=== PATIENT | female | born 1995 | race Caucasian/White ===

== ENCOUNTER → 2016-03-21 | Outpatient (CLI) | payer OTHER ==
--- NOTE | 2016-03-21 11:35 | REP ---
HIDA SCAN WITH GALLBLADDER EJECTION FRACTION: Following the intravenous administration of 6.2 mCi of technetium 99m mebrofenin, multiple images of the right upper quadrant are performed every 5 minutes for a period of 1 hour. There is biliary to bowel transit at 15 minutes post injection. The gallbladder is visualized at 35 minutes post injection with no scintigraphic evidence of cholecystitis. At the 1 hour ramesh, 8 ounces of Ensure Enlive was ingested and further imaging performed for 1 hour. Gallbladder activity is measured and the gallbladder ejection fraction is calculated to be 55% which is normal. IMPRESSION: No scintigraphic evidence of cholecystitis. Normal gallbladder ejection fraction. Signed by Martell Charles MD 03/21/2016 05:20 P
== END ==
LOC: M RAD 07:02
PROVIDERS: ATTEND Surgery
DX: R10.11 Right upper quadrant pain (principal)

== ENCOUNTER 2016-04-05 19:44 | Emergency (ER) | payer OTHER ==
[2016-04-05 21:00] LABS: BASO % 0.5 % (0.0-1.0); EOS # 0.1 K/mm3 (0.0-0.50); EOS % 1.9 % (0.0-3.0); LARGE UNSTAINED CELL # 0.1 K/mm3 (0.0-0.4); LARGE UNSTAINED CELL % 2.1 % (0.0-4.0); LYMPH # 2.4 K/mm3 (1.5-6.5); LYMPH % 35.9 % (24.0-44.0); MEAN CORPUSCULAR HEMOGLOBIN 29.7 pg (27.0-33.0); MEAN CORPUSCULAR HGB CONC 34.5 g/dl (32.0-36.5); MEAN CORPUSCULAR VOLUME 86.2 fl (80.0-96.0); MONO # 0.4 K/mm3 (0.0-0.8); MONO % 5.9 % (0.0-5.0); NEUTROPHILS # 3.6 K/mm3 (1.8-7.7); NEUTROPHILS % 53.7 % (36.0-66.0); PLATELET COUNT, AUTOMATED 185 k/mm3 (150-450); RED CELL DISTRIBUTION WIDTH 12.7 % (11.5-14.5); WHITE BLOOD COUNT 6.7 K/mm3 (4.0-10.0)
[2016-04-05] MEDS ORDERED: MORPHINE 4 MG/ML 1ML SYRINGE As Ordered ONE (21:06)
[2016-04-05] MEDS ORDERED: ONDANSETRON 4MG/2ML VIAL (J2405) As Ordered ONE (21:06)
[2016-04-05 21:09] LABS: INR 0.99
[2016-04-05 21:12] LABS: CONTROL LINE HCG INT CTR LINE PRESENT
[2016-04-05 21:21] LABS: ALBUMIN/GLOBULIN RATIO 1.33 (1.00-1.93); ALKALINE PHOSPHATASE 76 U/L (45-117); ALT/SGPT 16 U/L (12-78); AMYLASE 56 U/L (25-115); ANION GAP 8 MEQ/L (8-16); AST/SGOT 11 U/L (15-37); BILIRUBIN,DIRECT 0.1 MG/DL (0.0-0.2); BILIRUBIN,TOTAL 0.3 MG/DL (0.2-1.0); BLOOD UREA NITROGEN 19 MG/DL (7-18); CALCIUM LEVEL 9.2 MG/DL (8.5-10.1); CARBON DIOXIDE LEVEL 28 MEQ/L (21-32); CHLORIDE LEVEL 106 MEQ/L (98-107); CREATININE FOR GFR 0.77 MG/DL (0.55-1.02); GLUCOSE, FASTING 88 MG/DL (70-105); POTASSIUM SERUM 4.1 MEQ/L (3.5-5.1); SODIUM LEVEL 142 MEQ/L (136-145)
[2016-04-05] MEDS ORDERED: diphenhydrAMINE INJ 50MG/ML VIAL (J1200) As Ordered ONE (21:33)
[2016-04-05] MEDS ORDERED: ISOVUE-370 76% 100ML VIAL (Q9967) As Ordered ONE (22:52)
--- NOTE | 2016-04-05 23:30 | REPUSA ---
CT of the abdomen and pelvis with contrast Clinical statement: Pain. Technique: Multiple axial CT images were obtained from the base of the lungs through the floor of the pelvis utilizing 5 mm axial slices after administration of nonionic intravenous contrast. Coronal an d sagittal reconstructions were also obtained. Comparison: 01/17/2016. Findings: Chest: The visualized lung bases are clear. Abdomen: The liver, spleen, pancreas, kidneys, gallbladder, and adrenal glands are unremarkable. The aorta is within normal limits. There is no evidence of abdominal lymphadenopathy or ascites. Pelvis: The bowel is unremarkable, with no obstructive or inflammatory changes. The appendix is tamar l. The urinary bladder is within normal limits. The other pelvic structures appear grossly intact. Th ere is no evidence of pelvic lymphadenopathy or ascites. Bones: There are no suspicious osseous abnormalities seen. Impression: Unremarkable CT examination of the abdomen and pelvis.
[2016-04-05] MEDS ORDERED: HYDROmorphone HCL 1 MG/ML SYRINGE (J1170) As Ordered ONE (23:52)
[2016-04-06 02:07] LABS: MEAN CORPUSCULAR HEMOGLOBIN 29.6 pg (27.0-33.0); MEAN CORPUSCULAR HGB CONC 34.3 g/dl (32.0-36.5); MEAN CORPUSCULAR VOLUME 86.3 fl (80.0-96.0); RED CELL DISTRIBUTION WIDTH 12.8 % (11.5-14.5); WHITE BLOOD COUNT 7.9 K/mm3 (4.0-10.0)
--- NOTE | 2016-04-06 02:56 | EDDOCDS ---
Nurse's Notes [facility] Name: Mona Holloway Age: 20 yrs Sex: Female : 1995 Arrival Date: 04/05/2016 Time: 19:44 Bed 12 Private MD: Rafia COURTNEY Diagnosis: Abdominal and pelvic pain Presentation: 04/05 20:02 Presenting complaint: Patient states: PER PT YESTERDAY SHE HAD ENDOSCOPY WITH BIOPSY AT [address], THIS AFTERNOON SHE DEVELOPED NAUSEA & VOMITING & STATES THERE HAS BEEN A SIGNIFICANT AMOUNT OF BLOOD NOTED IN HER EMESIS, ALSO HAS HAD ALL OVER ABDOMINAL PAIN. Risk factors: the patient reports no vaginal bleeding. Adult Sepsis Screening: The patient does not have new or worsening altered mentation. Patient's respiratory rate is less than 22. Systolic blood pressure is greater than 100. Patient has a qSOFA score of 0- Negative Sepsis Screen. Suicide/Homicide risk assessment- the patient denies having any suicidal and/or homicidal ideations and does not present with any other emotional, behavioral or mental health complaints. 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 Transition of care: patient was not received from another setting of care. 20:02 Acuity: WILMER Level 3 5 20:02 Method Of Arrival: Walkin/Carried/Asstd 5 Triage Assessment: 20:05 General: Appears in no apparent distress, Behavior is appropriate for age, cooperative. tm5 Pain: Location: abdomen Pain currently is 8 out of 10 on a pain scale. Quality of pain is described as crampy, sharp. Pt Declines HIV testing. Neurological: Level of Consciousness is awake, alert, Oriented to person, place, time. Respiratory: Airway is patent Respiratory effort is even, unlabored, Respiratory pattern is regular, symmetrical. GI: Abdomen is non- distended Reports nausea, vomiting. Derm: Skin is pink, warm & dry. normal. 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 control implant left arm - PMHx: Gall Bladder Disease; - PSHx: WISDOM TEETH; - Social history: Smoking status: Patient states was never smoker of tobacco. No barriers to communication noted, The patient speaks fluent Occitan. - Family history: Not pertinent. - : The pt / caregiver states he / she is not on anticoagulants. Home medication list is obtained from the patient. - Exposure Risk Screening:: None identified. Screenin:20 Screening information is obtained from the patient. Fall risk: No risks identified. rs3 Assistance ADL's: requires no assistance with activities of daily living. Abuse/DV Screen: The patient / caregiver reports he/she is: not in a situation that causes fear, pain or injury. Nutritional screening: No deficits noted. Advance Directives: Currently, there is no health care proxy. There is no active DNR order. home support is adequate. Assessment: 20:21 General: Appears in no apparent distress, Behavior is appropriate for age, cooperative. rs3 Pain: Location: abdomen. Neurological: Level of Consciousness is awake, alert, Oriented to person, place, time. Cardiovascular: Capillary refill < 3 seconds. Respiratory: Airway is patent Respiratory effort is even, unlabored. GI: Abdomen is non- distended Bowel sounds present X 4 quads. Abd is soft and non tender X 4 quads. GI: Reports upper abd pain, nausea, vomiting. Derm: Skin is pink, warm & dry. 21:30 General: Appears in no apparent distress, Behavior is appropriate for age, cooperative, rs3 reports of itching after the morphine. attending provider made aware. ordered Benadryl given . 23:38 Reassessment: Patient states symptoms have not improved. pt complains of abdominal pain tm5 7/10 at this time, states that she was given Morphine earlier which made her itchy so she also was given Benadryl, pt states allergy to Morphine, states "I usually get a pain medication that starts with a D when I'm here", pt appears to be in no distress at this time is smiling & laughing with visitor. 04/06 00:41 Reassessment: Patient appears in no apparent distress at this time. Patient states tm5 feeling better. Patient states symptoms have improved. pt resting with eyes closed, resp easy, no s/s of any distress. 01:11 Reassessment: Patient appears in no apparent distress at this time. Patient states tm5 feeling better. Patient states symptoms have improved. pt complains of itchy to her face, no hives or rash noted at this time, pt refuses cool cloth to place on her face, pt's friend/visitor is asking if pt can be admitted to the hospital for observation due to vomiting blood at home, pt has not vomited since she has been here in the ER. 02:54 Reassessment: Patient appears in no apparent distress at this time. Patient states tm5 feeling better. Patient states symptoms have improved. Vital Signs: 04/05 19:45 BP 121 / 72; Pulse 86; Resp 18 S; Temp 99.0(O); Pulse Ox 99% on R/A; Weight 63.5 kg gr2 (R); Height 65 in. (165.10 cm) (R); Pain 9/10; 22:39 BP 114 / 72; Pulse 74; Resp 18; Temp 98; Pulse Ox 99% on R/A; Pain 7/10; rs3 23:36 BP 114 / 62 (auto/); tm5 23:37 Resp 18; Pulse Ox 97% on R/A; Pain 7/10; tm5 04/06 00:36 Resp 16 S; Pulse Ox 96% on R/A; tm5 00:36 BP 103 / 55 (auto/); tm5 01:06 BP 105 / 56 (auto/); tm5 01:06 Pulse 77; Resp 18; Pulse Ox 95% on R/A; Pain 2/10; tm5 01:36 BP 109 / 52 (auto/); tm5 01:36 Pulse 77; Resp 18 S; Pulse Ox 96% on R/A; tm5 02:54 BP 104 / 51; Pulse 74; Resp 18; Temp 98.3; Pulse Ox 98% on R/A; Pain 2/10; tm5 04/05 19:45 Body Mass Index 23.30 (63.50 kg, 165.10 cm) gr2 Vitals: 04/05 19:45 Log In Time: April 05, 2016 at 19:45. gr2 ED Course: 19:45 Patient visited by Heladio Mueller. gr2 19:45 [facility]. gr2 19:45 Patient moved to Waiting gr2 19:47 Patient visited by Heladio Mueller. gr2 19:47 Patient moved to Pre RCE gr2 20:04 Triage Initiated tm5 20:08 Elizabeth Chapman,RN is Primary Nurse. ck1 20:08 Patient moved to 12 ck1 20:20 Patient visited by Elizabeth Chapman RN. rs3 20:21 Yonatan Dixon DO is Attending Physician. mm11 20:21 Patient visited by Yonatan Dixon DO. mm11 20:41 Patient visited by Yonatan Dixon DO. mm11 20:45 Type & Screen Sent. rs3 20:45 Prothrombin Time Profile\\E\\INR Sent. rs3 20:45 Partial Thromboplastin Time Sent. rs3 20:45 Lipase Sent. rs3 20:45 HCG,Serum Qualitative Sent. rs3 20:45 CBC with Diff Sent. rs3 20:45 Amylase Sent. rs3 20:45 Basic Metabolic Profile Sent. rs3 20:46 Liver Profile Sent. rs3 20:51 Patient visited by Kiarra Davies, Telecom Sales Consultant. jlm 21:15 [facility] Payment Agreement was scanned into [employer] and attached to record. gjb 21:21 Patient visited by Elizabeth Chapman RN. rs3 22:31 Patient visited by Elizabeth Chapman RN. rs3 23:11 Patient visited by Jaycee Lucio RN. tm5 23:[address] back from [address]. tm5 23:15 The patient / caregiver is instructed regarding the plan of care and ED course. Report tm5 received from Raysa LANDERS, assumed care of pt at this time. 23:35 Patient visited by Jaycee Lucio RN. tm5 23:41 Notified attending ED physician of pt's complaints of continuing abdominal pain . tm5 23:42 Waiting for radiology results. tm5 04/06 00:02 Patient visited by Jaycee Lucio RN. tm5 00:06 CT ABD & PELVIS: IV Contrast Only Returned. EDMS 00:41 Patient visited by Jaycee Lucio RN. tm5 01:09 COMPLETE BLOOD COUNT Sent. tm5 01:09 Labs drawn. (by ED staff). Sent per order to lab. tm5 01:10 Inserted saline lock: 20 gauge in right antecubital area this RN is documenting noted tm5 saline lock to right AC that wasn't documented by the off going RN. 01:25 Patient visited by Jaycee Lucio RN. tm5 02:04 Patient visited by Jaycee Lucio RN. tm5 02:53 Patient visited by Jaycee Lucio RN. tm5 02:54 Discontinued lock intact, bleeding controlled, pressure dressing applied, No tm5 redness/swelling at site. No procedures done that require assistance. Administered Medications: 04/05 21:20 Drug: Ondansetron 4 mg [ondansetron HCl 2 mg/mL intravenous solution (2 mL)] Route: rs3 IVP; Site: right antecubital; 23:38 Follow up: Response: Nausea is resolved; No Adverse Reaction tm5 21:21 Drug: morphine 4 mg [morphine 4 mg/mL intravenous cartridge (1 mL)] Route: IVP; Site: rs3 right antecubital; 22:39 Follow up: BP 114 / 72; Pulse 74 bpm; Resp 18 bpm; Temp 98; Pulse Ox 99% RA; Pain 09/24 rs3 Adult 21:49 Drug: diphenhydrAMINE 25 mg [diphenhydramine 50 mg/mL injection solution (0.5 mL)] rs3 Route: IVP; Site: right antecubital; 23:37 Follow up: Response: No Adverse Reaction tm5 04/06 00:02 Drug: Dilaudid - HYDROmorphone 0.5 mg [hydromorphone 1 mg/mL injection syringe (0.5 tm5 mL)] Route: IVP; Site: right antecubital; 00:44 Follow up: Response: No Adverse Reaction; Pain is decreased tm5 Order Results: Lab Order: Amylase; SPEC'M 04/05/16 20:43 Test: AMYLASE; Value: 56; Range: 25-115; Units: U/L; Status: F Lab Order: Basic Metabolic Profile; SPEC'M 04/05/16 20:43 Test: GLUCOSE, FASTING; Value: 88; Range: 70-105; Units: MG/DL; Status: F Test: BLOOD UREA NITROGEN; Value: 19; Range: 7-18; Abnormal: Above high normal; Units: MG/DL; Status: F Test: CREATININE FOR GFR; Value: 0.77; Range: 0.55-1.02; Units: MG/DL; Status: F Test: SODIUM LEVEL; Value: 142; Range: 136-145; Units: MEQ/L; Status: F Test: POTASSIUM SERUM; Value: 4.1; Range: 3.5-5.1; Units: MEQ/L; Status: F Test: CHLORIDE LEVEL; Value: 106; Range: 98-107; Units: MEQ/L; Status: F Test: CARBON DIOXIDE LEVEL; Value: 28; Range: 21-32; Units: MEQ/L; Status: F Test: ANION GAP; Value: 8; Range: 8-16; Units: MEQ/L; Status: F Test: CALCIUM LEVEL; Value: 9.2; Range: 8.5-10.1; Units: MG/DL; Status: F Lab Order: CBC with Diff; SPEC'M 04/05/16 20:43 Test: WHITE BLOOD COUNT; Value: 6.7; Range: 4.0-10.0; Units: K/mm3; Status: F Test: RED BLOOD COUNT; Value: 4.67; Range: 4.00-5.40; Units: M/mm3; Status: F Test: HEMOGLOBIN; Value: 13.9; Range: 12.0-16.0; Units: g/dl; Status: F Test: HEMATOCRIT; Value: 40.3; Range: 36.0-47.0; Units: %; Status: F Test: MEAN CORPUSCULAR VOLUME; Value: 86.2; Range: 80.0-96.0; Units: fl; Status: F Test: MEAN CORPUSCULAR HEMOGLOBIN; Value: 29.7; Range: 27.0-33.0; Units: pg; Status: F Test: MEAN CORPUSCULAR HGB CONC; Value: 34.5; Range: 32.0-36.5; Units: g/dl; Status: F Test: RED CELL DISTRIBUTION WIDTH; Value: 12.7; Range: 11.5-14.5; Units: %; Status: F Test: PLATELET COUNT, AUTOMATED; Value: 185; Range: 150-450; Units: k/mm3; Status: F Test: NEUTROPHILS %; Value: 53.7; Range: 36.0-66.0; Units: %; Status: F Test: LYMPH %; Value: 35.9; Range: 24.0-44.0; Units: %; Status: F Test: MONO %; Value: 5.9; Range: 0.0-5.0; Abnormal: Above high normal; Units: %; Status: F Test: EOS %; Value: 1.9; Range: 0.0-3.0; Units: %; Status: F Test: BASO %; Value: 0.5; Range: 0.0-1.0; Units: %; Status: F Test: LARGE UNSTAINED CELL %; Value: 2.1; Range: 0.0-4.0; Units: %; Status: F Test: NEUTROPHILS #; Value: 3.6; Range: 1.8-7.7; Units: K/mm3; Status: F Test: LYMPH #; Value: 2.4; Range: 1.5-6.5; Units: K/mm3; Status: F Test: MONO #; Value: 0.4; Range: 0.0-0.8; Units: K/mm3; Status: F Test: EOS #; Value: 0.1; Range: 0.0-0.50; Units: K/mm3; Status: F Test: BASO #; Value: 0.0; Range: 0.0-0.2; Units: K/mm3; Status: F Test: LARGE UNSTAINED CELL #; Value: 0.1; Range: 0.0-0.4; Units: K/mm3; Status: F Lab Order: HCG,Serum Qualitative; SPEC' 04/05/16 20:43 Test: HCG, SERUM QUALITATIVE; Value: NEGATIVE; Range: NEGATIVE; Status: F Lab Order: Lipase; SPEC' 04/05/16 20:43 Test: LIPASE; Value: 130; Range: 73-393; Units: U/L; Status: F Lab Order: Liver Profile; SPEC' 04/05/16 20:43 Test: AST/SGOT; Value: 11; Range: 15-37; Abnormal: Below low normal; Units: U/L; Status: F Test: ALT/SGPT; Value: 16; Range: 12-78; Units: U/L; Status: F Test: ALKALINE PHOSPHATASE; Value: 76; Range: 45-117; Units: U/L; Status: F Test: BILIRUBIN,TOTAL; Value: 0.3; Range: 0.2-1.0; Units: MG/DL; Status: F Test: BILIRUBIN,DIRECT; Value: 0.1; Range: 0.0-0.2; Units: MG/DL; Status: F Test: TOTAL PROTEIN; Value: 7.0; Range: 6.4-8.2; Units: GM/DL; Status: F Test: ALBUMIN; Value: 4.0; Range: 3.2-5.2; Units: GM/DL; Status: F Test: ALBUMIN/GLOBULIN RATIO; Value: 1.33; Range: 1.00-1.93; Status: F Lab Order: Partial Thromboplastin Time; [facility] 20[facility]43 Test: PARTIAL THROMBOPLASTIN TIME; Value: 28.2; Range: 26.6-37.1; Units: SECONDS; Status: F Lab Order: Prothrombin Time Profile\\E\\INR; 04/05/16 20:43 Test: PROTHROMBIN TIME; Value: 13.2; Range: 12.3-14.5; Units: SECONDS; Status: F Test: INR; Value: 0.99; Status: F Test Note: ; THERAPUTIC HUMAN INR VALUES INDICATIONS NORMAL RANGES PROPHYLAXIS/TREATMENT OF: VENOUS THROMBOSIS 2.0-3.0 PULMONARY EMBOLISM 2.0-3.0 PREVENTION OF SYSTEMIC EMBOLISM FROM: TISSUE HEART VALVES 2.0-3.0 ACUTE MYOCARDIAL INFARCTION 2.0-3.0 VALVULAR HEART DISEASE 2.0-3.0 ATRIAL FIBRILLATION 2.0-3.0 MECHANICAL VALVES(HIGH RISK) 2.5-3.5 RECURRENT MYOCARDIAL INFARCTION 2.5-3.5 Lab Order: Type & Screen; 04/05/16 20:43 Test: BLOOD TYPE; Value: A POS; Status: F Test: AB SCREEN (INDIRECT DEBORA)GEL; Value: NEGATIVE; Status: F Lab Order: COMPLETE BLOOD COUNT; [facility]04/06/16 01:05 Test: WHITE BLOOD COUNT; Value: 7.9; Range: 4.0-10.0; Units: K/mm3; Status: F Test: RED BLOOD COUNT; Value: 4.47; Range: 4.00-5.40; Units: M/mm3; Status: F Test: HEMOGLOBIN; Value: 13.2; Range: 12.0-16.0; Units: g/dl; Status: F Test: HEMATOCRIT; Value: 38.6; Range: 36.0-47.0; Units: %; Status: F Test: MEAN CORPUSCULAR VOLUME; Value: 86.3; Range: 80.0-96.0; Units: fl; Status: F Test: MEAN CORPUSCULAR HEMOGLOBIN; Value: 29.6; Range: 27.0-33.0; Units: pg; Status: F Test: MEAN CORPUSCULAR HGB CONC; Value: 34.3; Range: 32.0-36.5; Units: g/dl; Status: F Test: RED CELL DISTRIBUTION WIDTH; Value: 12.8; Range: 11.5-14.5; Units: %; Status: F Test: PLATELET COUNT, AUTOMATED; Value: 178; Range: 150-450; Units: k/mm3; Status: F Radiology Order: CT ABD & PELVIS: IV Contrast Only Test: CT ABD & PELVIS: IV Contrast Only REASON FOR EXAMINATION: post endoscopy, pain; ; CT of the abdomen and pelvis with contrast; Clinical statement: Pain.; Technique: Multiple axial CT images were obtained from the base of the lungs through the floor of the; pelvis utilizing 5 mm axial slices after administration of nonionic intravenous contrast. Coronal an; d sagittal reconstructions were also obtained.; Comparison: 01/17/2016.; Findings:; Chest: The visualized lung bases are clear.; Abdomen: The liver, spleen, pancreas, kidneys, gallbladder, and adrenal glands are unremarkable. The; aorta is within normal limits. There is no evidence of abdominal lymphadenopathy or ascites.; Pelvis: The bowel is unremarkable, with no obstructive or inflammatory changes. The appendix is tamar; l. The urinary bladder is within normal limits. The other pelvic structures appear grossly intact. Th; ere is no evidence of pelvic lymphadenopathy or ascites.; Bones: There are no suspicious osseous abnormalities seen.; Impression: Unremarkable CT examination of the abdomen and pelvis.; ; Outcome: 02:33 Discharge ordered by Provider. mm11 02:54 Discharge Assessment: Patient awake, alert and oriented x 3. No cognitive and/or tm5 functional deficits noted. Patient verbalized understanding of disposition instructions. patient administered narcotics - yes. Pt provided with safe discharge. The following High Risk Discharge criteria are identified: None. Discharged to home ambulatory, with friend. Condition: good Condition: stable Condition: improved. Discharge instructions given to patient, Instructed on discharge instructions, follow up and referral plans. medication usage, Demonstrated understanding of instructions, medications, Pt was receptive of discharge instructions/ teaching. CT Study completed. Property :Personal belongings accompany Pt. 02:55 Patient left the ED. tm5 Signatures: Dispatcher [employer] EDChanda Dennis,RN RN ck1 Yonatan Dixon, DO mm11 Elizabeth Chapman RN RN rs3 Heladio Mueller gr2 Kiarra Davies, Telecom Sales Consultant Unit Valentina Morales Tonya, RN RN tm5 Corrections: (The following items were deleted from the chart) 04/05 21:33 20:05 Allergies: no known allergies; tm5 rs3 MTDD
--- NOTE | 2016-04-06 02:56 | EDDOCDS ---
Physician Documentation [facility] Name: Mona Holloway Age: 20 yrs Sex: Female : 1995 Arrival Date: 04/05/2016 Time: 19:44 Bed 12 [facility] Disposition: 04/06/16 02:33 Discharged to Home/Self Care. Impression: Abdominal and pelvic pain. - Condition is Stable. - Discharge Instructions: Abdominal Pain, Adult. - Medication Reconciliation, Local Pharmacy Hours form. - Follow up: Private Physician; When: 2 - 3 days; Reason: Continuance of care. - Problem is an acute exacerbation. - Symptoms have improved. - Notes: YOUR CT SCAN DID NOT SHOW ANY ABNORMALITIES AND YOUR BLOOD COUNTS DID NOT CHANGE. FOLLOW UP WITH YOUR SURGEON FOR FURTHER CARE. Historical: - Allergies: Morphine (Rash); - Home Meds: 1. control implant left arm - PMHx: Gall Bladder Disease; - PSHx: WISDOM TEETH; - Social history: Smoking status: Patient states was never smoker of tobacco. No barriers to communication noted, The patient speaks fluent Georgian. - Family history: Not pertinent. - : The pt / caregiver states he / she is not on anticoagulants. Home medication list is obtained from the patient. - Exposure Risk Screening:: None identified. DIRECTOR PATIENT FINANCIAL SERVICES: 04/05 20:05 LMP 03/22/2016 tm5 Vital Signs: 19:45 BP 121 / 72; Pulse 86; Resp 18 S; Temp 99.0(O); Pulse Ox 99% on R/A; Weight 63.5 kg / gr2 139.99 lbs (R); Height 65 in. (165.10 cm) (R); Pain 9/10; 22:39 BP 114 / 72; Pulse 74; Resp 18; Temp 98; Pulse Ox 99% on R/A; Pain 7/10; rs3 23:36 BP 114 / 62 (auto/); tm5 23:37 Resp 18; Pulse Ox 97% on R/A; Pain 7/10; tm5 04/06 00:36 Resp 16 S; Pulse Ox 96% on R/A; tm5 00:36 BP 103 / 55 (auto/); tm5 01:06 BP 105 / 56 (auto/); tm5 01:06 Pulse 77; Resp 18; Pulse Ox 95% on R/A; Pain 2/10; tm5 01:36 BP 109 / 52 (auto/); tm5 01:36 Pulse 77; Resp 18 S; Pulse Ox 96% on R/A; tm5 02:54 BP 104 / 51; Pulse 74; Resp 18; Temp 98.3; Pulse Ox 98% on R/A; Pain 2/10; tm5 04/05 19:45 Body Mass Index 23.30 (63.50 kg, 165.10 cm) gr2 MDM: 04/05 20:41 Ondansetron 4 mg IVP once ordered. mm11 20:42 morphine 4 mg IVP every 30 minutes; Document pain score/vitals after each dose (Hold if mm11 SBP < 90mmHg) x2 ordered. 20:42 IV Saline Lock ordered. mm11 20:42 Undress patient appropriately for examination ordered. mm11 20:43 Type & Screen Ordered. EDMS 20:43 NOTHING BY MOUTH+DIET ordered. EDMS 20:43 Amylase Ordered. EDMS 20:43 Basic Metabolic Profile Ordered. EDMS 20:43 CBC with Diff Ordered. EDMS 20:43 HCG,Serum Qualitative Ordered. EDMS 20:43 Lipase Ordered. EDMS 20:43 Liver Profile Ordered. EDMS 20:43 Partial Thromboplastin Time Ordered. EDMS 20:43 Prothrombin Time Profile\E\INR Ordered. EDMS 20:54 [facility] Order ordered. mm11 21:03 [facility] Faculty Physician Order complete. tmm1 21:09 Financial registration complete. zo 21:15 [facility] Payment Agreement was scanned into [employer] and attached to record. gjb 21:16 CBC with Diff Reviewed. mm11 21:16 HCG,Serum Qualitative Reviewed. mm11 21:16 Partial Thromboplastin Time Reviewed. mm11 21:16 Prothrombin Time Profile\E\INR Reviewed. mm11 21:16 Type & Screen Reviewed. mm11 21:30 diphenhydrAMINE 25 mg IVP once ordered. mm11 21:54 Basic Metabolic Profile Reviewed. mm11 21:54 Liver Profile Reviewed. mm11 21:54 Amylase Reviewed. mm11 21:54 HCG,Serum Qualitative Reviewed. mm11 21:54 Lipase Reviewed. mm11 21:54 Type & Screen Reviewed. mm11 21:55 CT ABD & PELVIS: IV Contrast Only Ordered. EDMS 23:51 Dilaudid - HYDROmorphone 0.5 mg IVP once ordered. mm11 04/06 00:05 Redraw CBC in 4 hours (put time in details section) ordered. mm11 00:10 Redraw CBC in 4 hours (put time in details section) complete. tmm1 00:12 COMPLETE BLOOD COUNT Ordered. EDMS 02:11 COMPLETE BLOOD COUNT Reviewed. mm11 02:11 CT ABD & PELVIS: IV Contrast Only Reviewed. mm11 Administered Medications: 04/05 21:20 Drug: Ondansetron 4 mg [ondansetron HCl 2 mg/mL intravenous solution (2 mL)] Route: rs3 IVP; Site: right antecubital; 23:38 Follow up: Response: Nausea is resolved; No Adverse Reaction tm5 21:21 Drug: morphine 4 mg [morphine 4 mg/mL intravenous cartridge (1 mL)] Route: IVP; Site: rs3 right antecubital; 22:39 Follow up: BP 114 / 72; Pulse 74 bpm; Resp 18 bpm; Temp 98; Pulse Ox 99% RA; Pain 09/24 rs3 Adult 21:49 Drug: diphenhydrAMINE 25 mg [diphenhydramine 50 mg/mL injection solution (0.5 mL)] rs3 Route: IVP; Site: right antecubital; 23:37 Follow up: Response: No Adverse Reaction tm5 04/06 00:02 Drug: Dilaudid - HYDROmorphone 0.5 mg [hydromorphone 1 mg/mL injection syringe (0.5 tm5 mL)] Route: IVP; Site: right antecubital; 00:44 Follow up: Response: No Adverse Reaction; Pain is decreased tm5 Signatures: Dispatcher [employer] EDMS Jesu Sams Matthew, DO DO mm11 Elizabeth Chapman RN RN rs3 Kati Magdaleno, CLAMMER CLAMMER tmm1 Valentina Srivastava Tonya, RN RN tm5 The chart was reviewed and I authenticate all verbal orders and agree with the evaluation and treatment provided.Corrections: (The following items were deleted from the chart) 04/05 21:33 20:05 Allergies: no known allergies; tm5 rs3 Attachments: 21:15 [facility] Payment Agreement emely MTDD
--- NOTE | 2016-04-08 03:56 | EDDOCDS ---
Physician Documentation [facility] Name: Mona Holloway Age: 20 yrs Sex: Female : 1995 Arrival Date: 04/05/2016 Time: 19:44 Bed 12 Private [facility] Disposition: 04/06/16 02:33 Discharged to Home/Self Care. Impression: Abdominal and pelvic pain. - Condition is Stable. - Discharge Instructions: Abdominal Pain, Adult. - Medication Reconciliation, Local Pharmacy Hours form. - Follow up: Private Physician; When: 2 - 3 days; Reason: Continuance of care. - Problem is an acute exacerbation. - Symptoms have improved. - Notes: YOUR CT SCAN DID NOT SHOW ANY ABNORMALITIES AND YOUR BLOOD COUNTS DID NOT CHANGE. FOLLOW UP WITH YOUR SURGEON FOR FURTHER CARE. Historical: - Allergies: Morphine (Rash); - Home Meds: 1. control implant left arm - PMHx: Gall Bladder Disease; - PSHx: WISDOM TEETH; - Social history: Smoking status: Patient states was never smoker of tobacco. No barriers to communication noted, The patient speaks fluent Amharic. - Family history: Not pertinent. - : The pt / caregiver states he / she is not on anticoagulants. Home medication list is obtained from the patient. - Exposure Risk Screening:: None identified. 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 (165.10 cm) (R); Pain 9/10; 22:39 BP 114 / 72; Pulse 74; Resp 18; Temp 98; Pulse Ox 99% on R/A; Pain 7/10; rs3 23:36 BP 114 / 62 (auto/); tm5 23:37 Resp 18; Pulse Ox 97% on R/A; Pain 7/10; tm5 04/06 00:36 Resp 16 S; Pulse Ox 96% on R/A; tm5 00:36 BP 103 / 55 (auto/); tm5 01:06 BP 105 / 56 (auto/); tm5 01:06 Pulse 77; Resp 18; Pulse Ox 95% on R/A; Pain 2/10; tm5 01:36 BP 109 / 52 (auto/); tm5 01:36 Pulse 77; Resp 18 S; Pulse Ox 96% on R/A; tm5 02:54 BP 104 / 51; Pulse 74; Resp 18; Temp 98.3; Pulse Ox 98% on R/A; Pain 2/10; tm5 04/05 19:45 Body Mass Index 23.30 (63.50 kg, 165.10 cm) gr2 MDM: 04/05 20:41 Ondansetron 4 mg IVP once ordered. mm11 20:42 morphine 4 mg IVP every 30 minutes; Document pain score/vitals after each dose (Hold if mm11 SBP < 90mmHg) x2 ordered. 20:42 IV Saline Lock ordered. mm11 20:42 Undress patient appropriately for examination ordered. mm11 20:43 Type & Screen Ordered. EDMS 20:43 NOTHING BY MOUTH+DIET ordered. EDMS 20:43 Amylase Ordered. EDMS 20:43 Basic Metabolic Profile Ordered. EDMS 20:43 CBC with Diff Ordered. EDMS 20:43 HCG,Serum Qualitative Ordered. EDMS 20:43 Lipase Ordered. EDMS 20:43 Liver Profile Ordered. EDMS 20:43 Partial Thromboplastin Time Ordered. EDMS 20:43 Prothrombin Time Profile\E\INR Ordered. EDMS 20:54 [facility] ordered. mm11 21:03 [facility] [place] complete. tmm1 21:09 Financial registration complete. zo 21:15 [facility] was [place] into Pinkding[employer] and attached to record. gjb 21:16 CBC with Diff Reviewed. mm11 21:16 HCG,Serum Qualitative Reviewed. mm11 21:16 Partial Thromboplastin Time Reviewed. mm11 21:16 Prothrombin Time Profile\E\INR Reviewed. mm11 21:16 Type & Screen Reviewed. mm11 21:30 diphenhydrAMINE 25 mg IVP once ordered. mm11 21:54 Basic Metabolic Profile Reviewed. mm11 21:54 Liver Profile Reviewed. mm11 21:54 Amylase Reviewed. mm11 21:54 HCG,Serum Qualitative Reviewed. mm11 21:54 Lipase Reviewed. mm11 21:54 Type & Screen Reviewed. mm11 21:55 CT ABD & PELVIS: IV Contrast Only Ordered. EDMS 23:51 Dilaudid - HYDROmorphone 0.5 mg IVP once ordered. mm11 04/06 00:05 Redraw CBC in 4 hours (put time in details section) ordered. mm11 00:10 Redraw CBC in 4 hours (put time in details section) complete. tmm1 00:12 COMPLETE BLOOD COUNT Ordered. EDMS 02:11 COMPLETE BLOOD COUNT Reviewed. mm11 02:11 CT ABD & PELVIS: IV Contrast Only Reviewed. mm11 11:07 T-Sheet-- Draft Copy was scanned into Pinkdingo and attached to record. gb Administered Medications: 04/05 21:20 Drug: Ondansetron 4 mg [ondansetron HCl 2 mg/mL intravenous solution (2 mL)] Route: rs3 IVP; Site: right antecubital; 23:38 Follow up: Response: Nausea is resolved; No Adverse Reaction tm5 21:21 Drug: morphine 4 mg [morphine 4 mg/mL intravenous cartridge (1 mL)] Route: IVP; Site: rs3 right antecubital; 22:39 Follow up: BP 114 / 72; Pulse 74 bpm; Resp 18 bpm; Temp 98; Pulse Ox 99% RA; Pain 10 rs3 Adult 21:49 Drug: diphenhydrAMINE 25 mg [diphenhydramine 50 mg/mL injection solution (0.5 mL)] rs3 Route: IVP; Site: right antecubital; 23:37 Follow up: Response: No Adverse Reaction tm5 04/06 00:02 Drug: Dilaudid - HYDROmorphone 0.5 mg [hydromorphone 1 mg/mL injection syringe (0.5 tm5 mL)] Route: IVP; Site: right antecubital; 00:44 Follow up: Response: No Adverse Reaction; Pain is decreased tm5 Signatures: Dispatcher MedHost EDMS Khloe Bueno, Jesu Ragsdale Matthew, DO DO mm11 Elizabeth Chapman RN RN rs3 McLear, Kati, THERAPEUTIC SUPPORT STAFF THERAPEUTIC SUPPORT STAFF tmm1 Valentina Srivastava Tonya, RN RN tm5 The chart was reviewed and I authenticate all verbal orders and agree with the evaluation and treatment provided.Corrections: (The following items were deleted from the chart) 04/05 21:33 20:05 Allergies: no known allergies; tm5 rs3 Attachments: 21:15 [facility] Payment Agreement gjb 04/06 11:07 T-Sheet-- Draft Copy gb Chart Complete MTDD
--- NOTE | 2016-04-08 03:56 | EDDOCDS ---
Nurse's Notes [facility] Name: Mona Holloway Age: 20 yrs Sex: Female : 1995 Arrival Date: 04/05/2016 Time: 19:44 Bed 12 Private MD: Rafia COURTNEY Diagnosis: Abdominal and pelvic pain Presentation: 04/05 20:02 Presenting complaint: Patient states: PER PT YESTERDAY SHE HAD ENDOSCOPY WITH BIOPSY AT [address], THIS AFTERNOON SHE DEVELOPED NAUSEA & VOMITING & STATES THERE HAS BEEN A SIGNIFICANT AMOUNT OF BLOOD NOTED IN HER EMESIS, ALSO HAS HAD ALL OVER ABDOMINAL PAIN. Risk factors: the patient reports no vaginal bleeding. Adult Sepsis Screening: The patient does not have new or worsening altered mentation. Patient's respiratory rate is less than 22. Systolic blood pressure is greater than 100. Patient has a qSOFA score of 0- Negative Sepsis Screen. Suicide/Homicide risk assessment- the patient denies having any suicidal and/or homicidal ideations and does not present with any other emotional, behavioral or mental health complaints. 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 Transition of care: patient was not received from another setting of care. 20:02 Acuity: WILMER Level 3 5 20:02 Method Of Arrival: Walkin/Carried/Asstd 5 Triage Assessment: 20:05 General: Appears in no apparent distress, Behavior is appropriate for age, cooperative. tm5 Pain: Location: abdomen Pain currently is 8 out of 10 on a pain scale. Quality of pain is described as crampy, sharp. Pt Declines HIV testing. Neurological: Level of Consciousness is awake, alert, Oriented to person, place, time. Respiratory: Airway is patent Respiratory effort is even, unlabored, Respiratory pattern is regular, symmetrical. GI: Abdomen is non- distended Reports nausea, vomiting. Derm: Skin is pink, warm & dry. normal. INTERMEDIATE MANAGER: 20:05 LMP 03/22/2016 5 Historical: - Allergies: Morphine (Rash); - Home Meds: 1. control implant left arm - PMHx: Gall Bladder Disease; - PSHx: WISDOM TEETH; - Social history: Smoking status: Patient states was never smoker of tobacco. No barriers to communication noted, The patient speaks fluent Vietnamese. - Family history: Not pertinent. - : The pt / caregiver states he / she is not on anticoagulants. Home medication list is obtained from the patient. - Exposure Risk Screening:: None identified. Screenin:20 Screening information is obtained from the patient. Fall risk: No risks identified. rs3 Assistance ADL's: requires no assistance with activities of daily living. Abuse/DV Screen: The patient / caregiver reports he/she is: not in a situation that causes fear, pain or injury. Nutritional screening: No deficits noted. Advance Directives: Currently, there is no health care proxy. There is no active DNR order. home support is adequate. Assessment: 20:21 General: Appears in no apparent distress, Behavior is appropriate for age, cooperative. rs3 Pain: Location: abdomen. Neurological: Level of Consciousness is awake, alert, Oriented to person, place, time. Cardiovascular: Capillary refill < 3 seconds. Respiratory: Airway is patent Respiratory effort is even, unlabored. GI: Abdomen is non- distended Bowel sounds present X 4 quads. Abd is soft and non tender X 4 quads. GI: Reports upper abd pain, nausea, vomiting. Derm: Skin is pink, warm & dry. 21:30 General: Appears in no apparent distress, Behavior is appropriate for age, cooperative, rs3 reports of itching after the morphine. attending provider made aware. ordered Benadryl given . 23:38 Reassessment: Patient states symptoms have not improved. pt complains of abdominal pain tm5 7/10 at this time, states that she was given Morphine earlier which made her itchy so she also was given Benadryl, pt states allergy to Morphine, states "I usually get a pain medication that starts with a D when I'm here", pt appears to be in no distress at this time is smiling & laughing with visitor. 04/06 00:41 Reassessment: Patient appears in no apparent distress at this time. Patient states tm5 feeling better. Patient states symptoms have improved. pt resting with eyes closed, resp easy, no s/s of any distress. 01:11 Reassessment: Patient appears in no apparent distress at this time. Patient states tm5 feeling better. Patient states symptoms have improved. pt complains of itchy to her face, no hives or rash noted at this time, pt refuses cool cloth to place on her face, pt's friend/visitor is asking if pt can be admitted to the hospital for observation due to vomiting blood at home, pt has not vomited since she has been here in the ER. 02:54 Reassessment: Patient appears in no apparent distress at this time. Patient states tm5 feeling better. Patient states symptoms have improved. Vital Signs: 04/05 19:45 BP 121 / 72; Pulse 86; Resp 18 S; Temp 99.0(O); Pulse Ox 99% on R/A; Weight 63.5 kg gr2 (R); Height 65 in. (165.10 cm) (R); Pain 9/10; 22:39 BP 114 / 72; Pulse 74; Resp 18; Temp 98; Pulse Ox 99% on R/A; Pain 7/10; rs3 23:36 BP 114 / 62 (auto/); tm5 23:37 Resp 18; Pulse Ox 97% on R/A; Pain 7/10; tm5 04/06 00:36 Resp 16 S; Pulse Ox 96% on R/A; tm5 00:36 BP 103 / 55 (auto/); tm5 01:06 BP 105 / 56 (auto/); tm5 01:06 Pulse 77; Resp 18; Pulse Ox 95% on R/A; Pain 2/10; tm5 01:36 BP 109 / 52 (auto/); tm5 01:36 Pulse 77; Resp 18 S; Pulse Ox 96% on R/A; tm5 02:54 BP 104 / 51; Pulse 74; Resp 18; Temp 98.3; Pulse Ox 98% on R/A; Pain 2/10; tm5 04/05 19:45 Body Mass Index 23.30 (63.50 kg, 165.10 cm) gr2 Vitals: 04/05 19:45 Log In Time: April 05, 2016 at 19:45. gr2 ED Course: 19:45 Patient visited by Heladio Mueller. gr2 19:45 [facility]. gr2 19:45 Patient moved to Waiting gr2 19:47 Patient visited by Heladio Mueller. gr2 19:47 Patient moved to Pre RCE gr2 20:04 Triage Initiated tm5 20:08 Elizabeth Chapman,RN is Primary Nurse. ck1 20:08 Patient moved to 12 ck1 20:20 Patient visited by Elizabeth Chapman RN. rs3 20:21 Yonatan Dixon DO is Attending Physician. mm11 20:21 Patient visited by Yonatan Dixon DO. mm11 20:41 Patient visited by Yonatan Dixon DO. mm11 20:45 Type & Screen Sent. rs3 20:45 Prothrombin Time Profile\\E\\INR Sent. rs3 20:45 Partial Thromboplastin Time Sent. rs3 20:45 Lipase Sent. rs3 20:45 HCG,Serum Qualitative Sent. rs3 20:45 CBC with Diff Sent. rs3 20:45 Amylase Sent. rs3 20:45 Basic Metabolic Profile Sent. rs3 20:46 Liver Profile Sent. rs3 20:51 Patient visited by Kiarra Davies, Director Of Teaching And Learning. jlm 21:15 [facility] Payment Agreement was scanned into [employer] and attached to record. gjb 21:21 Patient visited by Elizabeth Chapman RN. rs3 22:31 Patient visited by Elizabeth Chapman RN. rs3 23:11 Patient visited by Jaycee Lucio RN. tm5 23:[address] back from [address]. tm5 23:15 The patient / caregiver is instructed regarding the plan of care and ED course. Report tm5 received from Raysa LANDERS, assumed care of pt at this time. 23:35 Patient visited by Jaycee Lucio RN. tm5 23:41 Notified attending ED physician of pt's complaints of continuing abdominal pain . tm5 23:42 Waiting for radiology results. tm5 04/06 00:02 Patient visited by Jaycee Lucio RN. tm5 00:06 CT ABD & PELVIS: IV Contrast Only Returned. EDMS 00:41 Patient visited by Jaycee Lucio RN. tm5 01:09 COMPLETE BLOOD COUNT Sent. tm5 01:09 Labs drawn. (by ED staff). Sent per order to lab. tm5 01:10 Inserted saline lock: 20 gauge in right antecubital area this RN is documenting noted tm5 saline lock to right AC that wasn't documented by the off going RN. 01:25 Patient visited by Jaycee Lucio RN. tm5 02:04 Patient visited by Jaycee Lucio RN. tm5 02:53 Patient visited by Jaycee Lucio RN. tm5 02:54 Discontinued lock intact, bleeding controlled, pressure dressing applied, No tm5 redness/swelling at site. No procedures done that require assistance. 11:07 T-Sheet-- Draft Copy was scanned into [employer]orse and attached to record. gb Administered Medications: 04/05 21:20 Drug: Ondansetron 4 mg [ondansetron HCl 2 mg/mL intravenous solution (2 mL)] Route: rs3 IVP; Site: right antecubital; 23:38 Follow up: Response: Nausea is resolved; No Adverse Reaction tm5 21:21 Drug: morphine 4 mg [morphine 4 mg/mL intravenous cartridge (1 mL)] Route: IVP; Site: rs3 right antecubital; 22:39 Follow up: BP 114 / 72; Pulse 74 bpm; Resp 18 bpm; Temp 98; Pulse Ox 99% RA; Pain 7/10 rs3 Adult 21:49 Drug: diphenhydrAMINE 25 mg [diphenhydramine 50 mg/mL injection solution (0.5 mL)] rs3 Route: IVP; Site: right antecubital; 23:37 Follow up: Response: No Adverse Reaction tm5 04/06 00:02 Drug: Dilaudid - HYDROmorphone 0.5 mg [hydromorphone 1 mg/mL injection syringe (0.5 tm5 mL)] Route: IVP; Site: right antecubital; 00:44 Follow up: Response: No Adverse Reaction; Pain is decreased tm5 Order Results: Lab Order: Amylase; SPEC'M 04/05/16 20:43 Test: AMYLASE; Value: 56; Range: 25-115; Units: U/L; Status: F Lab Order: Basic Metabolic Profile; SPEC'M 04/05/16 20:43 Test: GLUCOSE, FASTING; Value: 88; Range: 70-105; Units: MG/DL; Status: F Test: BLOOD UREA NITROGEN; Value: 19; Range: 7-18; Abnormal: Above high normal; Units: MG/DL; Status: F Test: CREATININE FOR GFR; Value: 0.77; Range: 0.55-1.02; Units: MG/DL; Status: F Test: SODIUM LEVEL; Value: 142; Range: 136-145; Units: MEQ/L; Status: F Test: POTASSIUM SERUM; Value: 4.1; Range: 3.5-5.1; Units: MEQ/L; Status: F Test: CHLORIDE LEVEL; Value: 106; Range: 98-107; Units: MEQ/L; Status: F Test: CARBON DIOXIDE LEVEL; Value: 28; Range: 21-32; Units: MEQ/L; Status: F Test: ANION GAP; Value: 8; Range: 8-16; Units: MEQ/L; Status: F Test: CALCIUM LEVEL; Value: 9.2; Range: 8.5-10.1; Units: MG/DL; Status: F Lab Order: CBC with Diff; SPEC'M 04/05/16 20:43 Test: WHITE BLOOD COUNT; Value: 6.7; Range: 4.0-10.0; Units: K/mm3; Status: F Test: RED BLOOD COUNT; Value: 4.67; Range: 4.00-5.40; Units: M/mm3; Status: F Test: HEMOGLOBIN; Value: 13.9; Range: 12.0-16.0; Units: g/dl; Status: F Test: HEMATOCRIT; Value: 40.3; Range: 36.0-47.0; Units: %; Status: F Test: MEAN CORPUSCULAR VOLUME; Value: 86.2; Range: 80.0-96.0; Units: fl; Status: F Test: MEAN CORPUSCULAR HEMOGLOBIN; Value: 29.7; Range: 27.0-33.0; Units: pg; Status: F Test: MEAN CORPUSCULAR HGB CONC; Value: 34.5; Range: 32.0-36.5; Units: g/dl; Status: F Test: RED CELL DISTRIBUTION WIDTH; Value: 12.7; Range: 11.5-14.5; Units: %; Status: F Test: PLATELET COUNT, AUTOMATED; Value: 185; Range: 150-450; Units: k/mm3; Status: F Test: NEUTROPHILS %; Value: 53.7; Range: 36.0-66.0; Units: %; Status: F Test: LYMPH %; Value: 35.9; Range: 24.0-44.0; Units: %; Status: F Test: MONO %; Value: 5.9; Range: 0.0-5.0; Abnormal: Above high normal; Units: %; Status: F Test: EOS %; Value: 1.9; Range: 0.0-3.0; Units: %; Status: F Test: BASO %; Value: 0.5; Range: 0.0-1.0; Units: %; Status: F Test: LARGE UNSTAINED CELL %; Value: 2.1; Range: 0.0-4.0; Units: %; Status: F Test: NEUTROPHILS #; Value: 3.6; Range: 1.8-7.7; Units: K/mm3; Status: F Test: LYMPH #; Value: 2.4; Range: 1.5-6.5; Units: K/mm3; Status: F Test: MONO #; Value: 0.4; Range: 0.0-0.8; Units: K/mm3; Status: F Test: EOS #; Value: 0.1; Range: 0.0-0.50; Units: K/mm3; Status: F Test: BASO #; Value: 0.0; Range: 0.0-0.2; Units: K/mm3; Status: F Test: LARGE UNSTAINED CELL #; Value: 0.1; Range: 0.0-0.4; Units: K/mm3; Status: F Lab Order: HCG,Serum Qualitative; [facility] 04/05/16 20:43 Test: HCG, SERUM QUALITATIVE; Value: NEGATIVE; Range: NEGATIVE; Status: F Lab Order: Lipase; [facility] 04/05/16 20:43 Test: LIPASE; Value: 130; Range: 73-393; Units: U/L; Status: F Lab Order: Liver Profile; [facility] 04/05/16 20:43 Test: AST/SGOT; Value: 11; Range: 15-37; Abnormal: Below low normal; Units: U/L; Status: F Test: ALT/SGPT; Value: 16; Range: 12-78; Units: U/L; Status: F Test: ALKALINE PHOSPHATASE; Value: 76; Range: 45-117; Units: U/L; Status: F Test: BILIRUBIN,TOTAL; Value: 0.3; Range: 0.2-1.0; Units: MG/DL; Status: F Test: BILIRUBIN,DIRECT; Value: 0.1; Range: 0.0-0.2; Units: MG/DL; Status: F Test: TOTAL PROTEIN; Value: 7.0; Range: 6.4-8.2; Units: GM/DL; Status: F Test: ALBUMIN; Value: 4.0; Range: 3.2-5.2; Units: GM/DL; Status: F Test: ALBUMIN/GLOBULIN RATIO; Value: 1.33; Range: 1.00-1.93; Status: F Lab Order: Partial Thromboplastin Time; [facility] 20:43 Test: PARTIAL THROMBOPLASTIN TIME; Value: 28.2; Range: 26.6-37.1; Units: SECONDS; Status: F Lab Order: Prothrombin Time Profile\\E\\INR; 04/05/16:43 Test: PROTHROMBIN TIME; Value: 13.2; Range: 12.3-14.5; Units: SECONDS; Status: F Test: INR; Value: 0.99; Status: F Test Note: ; THERAPUTIC HUMAN INR VALUES INDICATIONS NORMAL RANGES PROPHYLAXIS/TREATMENT OF: VENOUS THROMBOSIS 2.0-3.0 PULMONARY EMBOLISM 2.0-3.0 PREVENTION OF SYSTEMIC EMBOLISM FROM: TISSUE HEART VALVES 2.0-3.0 ACUTE MYOCARDIAL INFARCTION 2.0-3.0 VALVULAR HEART DISEASE 2.0-3.0 ATRIAL FIBRILLATION 2.0-3.0 MECHANICAL VALVES(HIGH RISK) 2.5-3.5 RECURRENT MYOCARDIAL INFARCTION 2.5-3.5 Lab Order: Type & Screen; 04/05/16 20:43 Test: BLOOD TYPE; Value: A POS; Status: F Test: AB SCREEN (INDIRECT DEBORA)GEL; Value: NEGATIVE; Status: F Lab Order: COMPLETE BLOOD COUNT; [facility] 01:05 Test: WHITE BLOOD COUNT; Value: 7.9; Range: 4.0-10.0; Units: K/mm3; Status: F Test: RED BLOOD COUNT; Value: 4.47; Range: 4.00-5.40; Units: M/mm3; Status: F Test: HEMOGLOBIN; Value: 13.2; Range: 12.0-16.0; Units: g/dl; Status: F Test: HEMATOCRIT; Value: 38.6; Range: 36.0-47.0; Units: %; Status: F Test: MEAN CORPUSCULAR VOLUME; Value: 86.3; Range: 80.0-96.0; Units: fl; Status: F Test: MEAN CORPUSCULAR HEMOGLOBIN; Value: 29.6; Range: 27.0-33.0; Units: pg; Status: F Test: MEAN CORPUSCULAR HGB CONC; Value: 34.3; Range: 32.0-36.5; Units: g/dl; Status: F Test: RED CELL DISTRIBUTION WIDTH; Value: 12.8; Range: 11.5-14.5; Units: %; Status: F Test: PLATELET COUNT, AUTOMATED; Value: 178; Range: 150-450; Units: k/mm3; Status: F Radiology Order: CT ABD & PELVIS: IV Contrast Only Test: CT ABD & PELVIS: IV Contrast Only REASON FOR EXAMINATION: post endoscopy, pain; ; CT of the abdomen and pelvis with contrast; Clinical statement: Pain.; Technique: Multiple axial CT images were obtained from the base of the lungs through the floor of the; pelvis utilizing 5 mm axial slices after administration of nonionic intravenous contrast. Coronal an; d sagittal reconstructions were also obtained.; Comparison: 01/17/2016.; Findings:; Chest: The visualized lung bases are clear.; Abdomen: The liver, spleen, pancreas, kidneys, gallbladder, and adrenal glands are unremarkable. The; aorta is within normal limits. There is no evidence of abdominal lymphadenopathy or ascites.; Pelvis: The bowel is unremarkable, with no obstructive or inflammatory changes. The appendix is tamar; l. The urinary bladder is within normal limits. The other pelvic structures appear grossly intact. Th; ere is no evidence of pelvic lymphadenopathy or ascites.; Bones: There are no suspicious osseous abnormalities seen.; Impression: Unremarkable CT examination of the abdomen and pelvis.; ; Outcome: 02:33 Discharge ordered by Provider. mm11 02:54 Discharge Assessment: Patient awake, alert and oriented x 3. No cognitive and/or tm5 functional deficits noted. Patient verbalized understanding of disposition instructions. patient administered narcotics - yes. Pt provided with safe discharge. The following High Risk Discharge criteria are identified: None. Discharged to home ambulatory, with friend. Condition: good Condition: stable Condition: improved. Discharge instructions given to patient, Instructed on discharge instructions, follow up and referral plans. medication usage, Demonstrated understanding of instructions, medications, Pt was receptive of discharge instructions/ teaching. CT Study completed. Property :Personal belongings accompany Pt. 02:55 Patient left the ED. tm5 Signatures: Dispatcher Med[employer] EDMS Khloe Bueno, Reg Reg gb Chanda Grove,RN RN ck1 Yonatan Dixon DO DO mm11 Elizabeth ChapmanRN RN rs3 Heladio Mueller gr2 Kiarra Davies, Director Of Teaching And Learning Unit Valentina Morales Tonya,RN RN tm5 Corrections: (The following items were deleted from the chart) 04/05 21:33 20:05 Allergies: no known allergies; tm5 rs3 Chart Complete MTDD
--- NOTE | 2016-04-08 03:56 | EDDOCDS ---
Physician Documentation [facility] Name: Mona Holloway Age: 20 yrs Sex: Female : 1995 Arrival Date: 04/05/2016 Time: 19:44 Bed 12 [facility]: 04/06/16 02:33 Discharged to Home/Self Care. Impression: Abdominal and pelvic pain. - Condition is Stable. - Discharge Instructions: Abdominal Pain, Adult. - Medication Reconciliation, Local Pharmacy Hours form. - Follow up: Private Physician; When: 2 - 3 days; Reason: Continuance of care. - Problem is an acute exacerbation. - Symptoms have improved. - Notes: YOUR CT SCAN DID NOT SHOW ANY ABNORMALITIES AND YOUR BLOOD COUNTS DID NOT CHANGE. FOLLOW UP WITH YOUR SURGEON FOR FURTHER CARE. Historical: - Allergies: Morphine (Rash); - Home Meds: 1. control implant left arm - PMHx: Gall Bladder Disease; - PSHx: WISDOM TEETH; - Social history: Smoking status: Patient states was never smoker of tobacco. No barriers to communication noted, The patient speaks fluent Turkmen. - Family history: Not pertinent. - : The pt / caregiver states he / she is not on anticoagulants. Home medication list is obtained from the patient. - Exposure Risk Screening:: None identified. BACK TENDER: 04/05 20:05 LMP 03/22/2016 tm5 Vital Signs: 19:45 BP 121 / 72; Pulse 86; Resp 18 S; Temp 99.0(O); Pulse Ox 99% on R/A; Weight 63.5 kg / gr2 139.99 lbs (R); Height 65 in. (165.10 cm) (R); Pain 9/10; 22:39 BP 114 / 72; Pulse 74; Resp 18; Temp 98; Pulse Ox 99% on R/A; Pain 7/10; rs3 23:36 BP 114 / 62 (auto/); tm5 23:37 Resp 18; Pulse Ox 97% on R/A; Pain 7/10; tm5 04/06 00:36 Resp 16 S; Pulse Ox 96% on R/A; tm5 00:36 BP 103 / 55 (auto/); tm5 01:06 BP 105 / 56 (auto/); tm5 01:06 Pulse 77; Resp 18; Pulse Ox 95% on R/A; Pain 2/10; tm5 01:36 BP 109 / 52 (auto/); tm5 01:36 Pulse 77; Resp 18 S; Pulse Ox 96% on R/A; tm5 02:54 BP 104 / 51; Pulse 74; Resp 18; Temp 98.3; Pulse Ox 98% on R/A; Pain 2/10; tm5 04/05 19:45 Body Mass Index 23.30 (63.50 kg, 165.10 cm) gr2 MDM: 04/05 20:41 Ondansetron 4 mg IVP once ordered. mm11 20:42 morphine 4 mg IVP every 30 minutes; Document pain score/vitals after each dose (Hold if mm11 SBP < 90mmHg) x2 ordered. 20:42 IV Saline Lock ordered. mm11 20:42 Undress patient appropriately for examination ordered. mm11 20:43 Type & Screen Ordered. EDMS 20:43 NOTHING BY MOUTH+DIET ordered. EDMS 20:43 Amylase Ordered. EDMS 20:43 Basic Metabolic Profile Ordered. EDMS 20:43 CBC with Diff Ordered. EDMS 20:43 HCG,Serum Qualitative Ordered. EDMS 20:43 Lipase Ordered. EDMS 20:43 Liver Profile Ordered. EDMS 20:43 Partial Thromboplastin Time Ordered. EDMS 20:43 Prothrombin Time Profile\E\INR Ordered. EDMS 20:54 [facility] Order ordered. mm11 21:03 [facility] Percussion Tuner Order complete. tmm1 21:09 Financial registration complete. zo 21:15 [facility] Payment Agreement was scanned into [employer] and attached to record. gjb 21:16 CBC with Diff Reviewed. mm11 21:16 HCG,Serum Qualitative Reviewed. mm11 21:16 Partial Thromboplastin Time Reviewed. mm11 21:16 Prothrombin Time Profile\E\INR Reviewed. mm11 21:16 Type & Screen Reviewed. mm11 21:30 diphenhydrAMINE 25 mg IVP once ordered. mm11 21:54 Basic Metabolic Profile Reviewed. mm11 21:54 Liver Profile Reviewed. mm11 21:54 Amylase Reviewed. mm11 21:54 HCG,Serum Qualitative Reviewed. mm11 21:54 Lipase Reviewed. mm11 21:54 Type & Screen Reviewed. mm11 21:55 CT ABD & PELVIS: IV Contrast Only Ordered. EDMS 23:51 Dilaudid - HYDROmorphone 0.5 mg IVP once ordered. mm11 04/06 00:05 Redraw CBC in 4 hours (put time in details section) ordered. mm11 00:10 Redraw CBC in 4 hours (put time in details section) complete. tmm1 00:12 COMPLETE BLOOD COUNT Ordered. EDMS 02:11 COMPLETE BLOOD COUNT Reviewed. mm11 02:11 CT ABD & PELVIS: IV Contrast Only Reviewed. mm11 11:07 T-Sheet-- Draft Copy was scanned into [employer] and attached to record. gb Administered Medications: 04/05 21:20 Drug: Ondansetron 4 mg [ondansetron HCl 2 mg/mL intravenous solution (2 mL)] Route: rs3 IVP; Site: right antecubital; 23:38 Follow up: Response: Nausea is resolved; No Adverse Reaction tm5 21:21 Drug: morphine 4 mg [morphine 4 mg/mL intravenous cartridge (1 mL)] Route: IVP; Site: rs3 right antecubital; 22:39 Follow up: BP 114 / 72; Pulse 74 bpm; Resp 18 bpm; Temp 98; Pulse Ox 99% RA; Pain 10 rs3 Adult 21:49 Drug: diphenhydrAMINE 25 mg [diphenhydramine 50 mg/mL injection solution (0.5 mL)] rs3 Route: IVP; Site: right antecubital; 23:37 Follow up: Response: No Adverse Reaction tm5 04/06 00:02 Drug: Dilaudid - HYDROmorphone 0.5 mg [hydromorphone 1 mg/mL injection syringe (0.5 tm5 mL)] Route: IVP; Site: right antecubital; 00:44 Follow up: Response: No Adverse Reaction; Pain is decreased tm5 Signatures: Dispatcher [employer] EDMS Khloe Bueno, Jesu Ragsdale Matthew, DO DO mm11 Elizabeth Chapman RN RN rs3 McLear, Kati, JEWEL WAXER JEWEL WAXER tmm1 Valentina Srivastava Tonya, RN RN tm5 The chart was reviewed and I authenticate all verbal orders and agree with the evaluation and treatment provided.Corrections: (The following items were deleted from the chart) 04/05 21:33 20:05 Allergies: no known allergies; tm5 rs3 Attachments: 21:15 [facility] Payment Agreement gjb 04/06 11:07 T-Sheet-- Draft Copy gb Chart Complete MTDD
== END 2016-04-06 02:55 | disposition home or self-care (01) ==
LOC: M ED 19:44
DX: R10.11 Right upper quadrant pain (principal); R11.2 Nausea with vomiting, unspecified; Z98.890 Other specified postprocedural states; K82.9 Disease of gallbladder, unspecified; Z79.3 Long term (current) use of hormonal contraceptives; Z88.5 Allergy status to narcotic agent
CPT/HCPCS: 36415; 74177; 80048; 80076; 82150; 83690; 84703; 85025; 85027; 85610; 85730; 86850; 86900; 86901; 96374; 96375; 99284; J1170; J1200; J2405; Q9967

== ENCOUNTER 2016-04-06 14:30 | Emergency (ER) | payer OTHER | END 2016-04-06 15:10 | disposition left against medical advice (07) | LOC: M ED 14:30 | DX: R11.10 Vomiting, unspecified (principal); Z53.20 Procedure and treatment not carried out because of patient's decision for unspecified reasons ==

== ENCOUNTER 2016-06-18 23:15 | Emergency (ER) | payer OTHER ==
[~2016-06-18] VITALS: Ht 165.1 cm; Wt 65.8 kg
[2016-06-18] MEDS ORDERED: HYDR1OIN23 TOP (23:30)
[2016-06-18] MEDS ORDERED: CALALOT4 TOP (23:30)
[2016-06-19] MEDS ORDERED: PRED20TA PO (00:10)
[2016-06-19] MEDS ORDERED: BENA25CA3 PO (00:10)
[2016-06-19] MEDS ORDERED: ZANT1TAB PO (00:10)
[2016-06-19] MEDS ORDERED: diphenhydrAMINE 50 MG CAP PO ONE (00:15)
[2016-06-19] MEDS ORDERED: predniSONE 20 MG TAB PO ONE (00:15)
[2016-06-19] MEDS ORDERED: predniSONE 50 MG TAB PO ONE (00:15)
[2016-06-19 00:16] VITALS: BP 117/76
== END 2016-06-19 00:17 | disposition home or self-care (01) ==
LOC: M ED 06-19 00:08
DX: L23.7 Allergic contact dermatitis due to plants, except food (principal)

== ENCOUNTER 2016-08-10 08:10 | Emergency (ER) | payer OTHER ==
[~2016-08-10] VITALS: Ht 165.1 cm; Wt 65.8 kg
[~2016-08-10 08:10] MED LIST: BENA25CA3 PO; CALALOT4 TOP; HYDR1OIN23 TOP; PRED20TA PO; ZANT1TAB PO
[2016-08-10] MEDS ORDERED: PREN1MIS PO (08:18)
--- NOTE | 2016-08-10 09:19 | REP ---
Clinical: Vaginal bleeding. Dating and viability. Technique: None Findings: Anteverted uterus measures 8.3 x 3.6 x 4.7 cm. Gestational sac is identified without yolk sac or pole. Mean sac diameter of 4.3 mm corresponds to 5 weeks 1 day gestational age. Bilateral maternal ovaries are normal in appearance and vascularity without torsion and 8-0.9 cm right corpus luteal cyst is noted. Impression: Differential diagnosis includes early , blighted ovum, and ectopic which cannot be excluded. Correlation with serial HCG levels recommended and repeat ultrasound if necessary. Signed by Prashant Estes MD 08/10/2016 09:11 A
[2016-08-10 09:21] LABS: BASO % 0.4 % (0.0-1.0); EOS # 0.1 K/mm3 (0.0-0.50); LARGE UNSTAINED CELL # 0.1 K/mm3 (0.0-0.4); LARGE UNSTAINED CELL % 1.5 % (0.0-4.0); LYMPH # 2.1 K/mm3 (1.5-6.5); LYMPH % 30.8 % (24.0-44.0); MEAN CORPUSCULAR HEMOGLOBIN 30.1 pg (27.0-33.0); MEAN CORPUSCULAR HGB CONC 34.3 g/dl (32.0-36.5); MONO # 0.3 K/mm3 (0.0-0.8); MONO % 4.8 % (0.0-5.0); NEUTROPHILS # 4.1 K/mm3 (1.8-7.7); NEUTROPHILS % 61.5 % (36.0-66.0); PLATELET COUNT, AUTOMATED 176 k/mm3 (150-450); RED CELL DISTRIBUTION WIDTH 13.1 % (11.5-14.5); WHITE BLOOD COUNT 6.7 K/mm3 (4.0-10.0)
[2016-08-10] MEDS ORDERED: METR0.7512 PV (10:32)
[2016-08-10 10:38] VITALS: BP 122/68
== END 2016-08-10 10:39 | disposition home or self-care (01) ==
LOC: M ED 08:59
DX: O20.0 Threatened abortion (principal); Z88.5 Allergy status to narcotic agent; O23.599 Infection of other part of genital tract in pregnancy, unspecified trimester; A74.9 Chlamydial infection, unspecified; Z3A.00 Weeks of gestation of pregnancy not specified

== ENCOUNTER 2016-10-12 12:39 | Emergency (ER) | payer OTHER ==
[~2016-10-12] VITALS: Ht 165.1 cm; Wt 72.7 kg
[~2016-10-12 12:39] MED LIST changes: +METR1GEL7 PV; +PREN1MIS PO
[2016-10-12] MEDS ORDERED: NS 1,000 ML IV ONE ×2 (14:00→15:00)
[2016-10-12] MEDS ORDERED: METOCLOPRAMIDE INJ 10MG/2ML VIAL (J2765) IV ONE (14:00)
[2016-10-12 16:46] VITALS: BP 107/60
== END 2016-10-12 16:48 | disposition home or self-care (01) ==
LOC: M ED 12:39
DX: O21.9 Vomiting of pregnancy, unspecified (principal); Z3A.14 14 weeks gestation of pregnancy
CPT/HCPCS: 36415; 96361; 96374; 99283; J2765

== ENCOUNTER 2016-12-03 04:24 | Emergency (ER) | payer OTHER ==
[~2016-12-03] VITALS: Ht 165.1 cm; Wt 70.5 kg
[2016-12-03 04:31] VITALS: BP 119/71
[2016-12-03] MEDS ORDERED: METOCLOPRAMIDE 10 MG TAB PO ONE (05:30)
[2016-12-03] MEDS ORDERED: REGL10TA6 PO (06:35)
== END 2016-12-03 06:42 | disposition home or self-care (01) ==
LOC: M ED 04:24
DX: O26.892 Other specified pregnancy related conditions, second trimester (principal); O21.9 Vomiting of pregnancy, unspecified; Z3A.22 22 weeks gestation of pregnancy; Z88.5 Allergy status to narcotic agent

== ENCOUNTER 2017-04-03 12:00 | Outpatient (CLI) | payer OTHER | END 2017-04-03 14:15 | disposition home or self-care (01) | LOC: M LDO 12:00 | DX: O36.8130 Decreased fetal movements, third trimester, not applicable or unspecified (principal); Z3A.39 39 weeks gestation of pregnancy | CPT/HCPCS: 59025 ==

== ENCOUNTER 2017-04-05 23:52 | Outpatient (CLI) | payer OTHER | END 2017-04-06 02:40 | disposition home or self-care (01) | LOC: M LDO 23:52 | DX: O62.2 Other uterine inertia (principal); O42.913 Preterm premature rupture of membranes, unspecified as to length of time between rupture and onset of labor, third trimester; Z3A.39 39 weeks gestation of pregnancy | CPT/HCPCS: 59025 ==

== ENCOUNTER 2017-04-07 17:42 | Inpatient (IN) | payer OTHER ==
[2017-04-07 19:20] LABS: HEMATOCRIT 33.6 % (36.0-47.0); HEMOGLOBIN 11.4 g/dl (12.0-16.0); MEAN CORPUSCULAR HEMOGLOBIN 28.4 pg (27.0-33.0); MEAN CORPUSCULAR HGB CONC 33.9 g/dl (32.0-36.5); MEAN CORPUSCULAR VOLUME 83.8 fl (80.0-96.0); PLATELET COUNT, AUTOMATED 152 10^3/uL (150-450); RED BLOOD COUNT 4.01 10^6/uL (4.00-5.40); RED CELL DISTRIBUTION WIDTH 14.2 % (11.5-14.5); WHITE BLOOD COUNT 13.6 10^3/uL (4.0-10.0)
[2017-04-07 19:53] LABS: AMPHETAMINES URINE REFLEX NEGATIVE (NEGATIVE); BARBITURATES URINE REFLEX NEGATIVE (NEGATIVE); BENZODIAZEPINES URINE REFLEX NEGATIVE (NEGATIVE); CANNABINOIDS URINE REFLEX NEGATIVE (NEGATIVE); COCAINE METABOLITE URINE REFLE NEGATIVE (NEGATIVE); METHADONE URINE REFLEX NEGATIVE (NEGATIVE); OPIATES URINE REFLEX NEGATIVE (NEGATIVE); PHENCYCLIDINE URINE REFLEX NEGATIVE (NEGATIVE)
[2017-04-07] MEDS ORDERED: FENTANYL 2MCG/ML ROPIVACAINE 0.2% IN 0.9% NACL 200ML IVBAG As Ordered (20:11)
[2017-04-07] MEDS: LACTATED RINGER'S 1000 ML IV (20:54)
[2017-04-07] MEDS: LR 1,000 ML IV (20:54)
[2017-04-07] MEDS ORDERED: OXYTOCIN 30 UNITS IN 0.9% NaCl 500ML IV BAG (J2590) As Ordered (21:20)
[2017-04-07] MEDS ORDERED: FENTANYL/ROPIVACAINE/NACL BAG 200 ML EPIDURAL (21:30)
[2017-04-07] MEDS ORDERED: ONDANSETRON 4MG/2ML VIAL (J2405) IV (21:30)
[2017-04-07] MEDS ORDERED: LACTATED RINGER'S 1000 ML IV (21:30)
[2017-04-07] MEDS ORDERED: diphenhydrAMINE INJ 50MG/ML VIAL (J1200) IV (21:30)
[2017-04-07] MEDS ORDERED: REFRIGERATOR IV KEYS XX (21:30)
[2017-04-07] MEDS ORDERED: ePHEDrine INJ 50 MG/ML VIAL IV (21:30)
[2017-04-07] MEDS ORDERED: EPIDURAL/PCA KEYS XX (21:30)
[2017-04-07] MEDS ORDERED: NALOXONE INJ 0.4 MG/1 ML VIAL (J2310) IV (21:30)
[2017-04-07] MEDS ORDERED: EPIDURAL COMMENT XX (21:30)
[2017-04-08] MEDS: OXYTOCIN DRIP 30 UNITS in APPROPRIATE DILUENT 1 EA IV (05:00)
[2017-04-08] MEDS ORDERED: ONDANSETRON 4MG/2ML VIAL (J2405) IV (05:15)
[2017-04-08] MEDS ORDERED: METHYLERGONOVINE MALEATE 0.2 MG/ML VIAL (J2210) IM (05:15)
[2017-04-08] MEDS ORDERED: PROMETHAZINE 25 MG TAB PO (05:15)
[2017-04-08] MEDS: ACETAMINOPHEN 500 MG TAB PO (07:38)
[2017-04-08] MEDS: PRENATAL VITAMINS CHEWABLE TABLET PO (07:38)
[2017-04-08] MEDS: DIBUCAINE 1% OINTMENT 30GM TOP (07:38)
[2017-04-08] MEDS: DOCUSATE SODIUM 100 MG CAP PO ×2 (07:38→20:12)
[2017-04-08] MEDS: IBUPROFEN 800 MG TAB PO (20:14)
[2017-04-09] MEDS: IBUPROFEN 800 MG TAB PO ×3 (05:46→21:20)
[2017-04-09] MEDS: PRENATAL VITAMINS CHEWABLE TABLET PO (10:42)
[2017-04-09] MEDS: DOCUSATE SODIUM 100 MG CAP PO ×2 (10:42→21:17)
[2017-04-10] MEDS: IBUPROFEN 800 MG TAB PO (05:26)
[2017-04-10] MEDS: MEASLES,MUMPS,RUBELLA VACCINE INJ (MMR-II) (90707) SC (07:27)
[2017-04-10] MEDS: RHOGAM 300 MCG (1500 IU) INJ (J2790) IM (07:27)
[2017-04-10] MEDS: PRENATAL VITAMINS CHEWABLE TABLET PO (08:48)
[2017-04-10] MEDS: DOCUSATE SODIUM 100 MG CAP PO (09:35)
[2017-04-10] MEDS: DIBUCAINE 1% OINTMENT 30GM TOP (10:18)
== END 2017-04-10 11:12 | disposition home or self-care (01) | DRG 775 ==
LOC: M LDO 17:42 → M OBS 04-08 07:01 → M LDI 18:38
PROVIDERS: Obstetrics & Gynecology
PROC: 10E0XZZ Delivery of Products of Conception, External Approach (ICD-10-PCS; principal; 2017-04-08)
PROC: 0HQ9XZZ Repair Perineum Skin, External Approach (ICD-10-PCS; 2017-04-08)
DX: O70.0 First degree perineal laceration during delivery (principal); Z37.0 Single live birth; Z3A.39 39 weeks gestation of pregnancy